=== PATIENT | female | born 1960 | race Caucasian/White ===

== ENCOUNTER → 2021-03-17 08:01 | Outpatient (BNVA) | payer OTHER, SELFPAY | DX: R82.71 Bacteriuria (principal); R31.29 Other microscopic hematuria | CPT/HCPCS: 99212 ==

== ENCOUNTER → 2022-03-23 09:15 | Outpatient (BNVA) | payer OTHER, SELFPAY | PROVIDERS: PCP Internal Medicine; Visit Provider Urology | DX: N36.2 Urethral caruncle (principal); R31.29 Other microscopic hematuria | CPT/HCPCS: 99212 ==

== ENCOUNTER 2023-03-23 09:11 | Outpatient (AMB) | payer MEDICARE, OTHER, SELFPAY ==
--- NOTE | 2023-03-23 09:19 | A.OFFVIS_ITS ---
Intake Intake Visit Reasons: Hematuria yearly follow up/UA Intake Note: Patient is present for Follow Up Urinalysis Urology Med: Estradiol Antibiotic Allergy: None Blood Thinner: None Pharmacy: [facility] Allergies No Known Allergies Allergy (Verified 03/23/23 09:20) HPI HPI Comments History of Present Illness Details Lisa is a very pleasant female. She is a patient of Dr Mayfield. She is seen for the following urologic conditions. 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 Full investigations 03/20 ? Prior Imaging normal ?Prior Cytology normal ?Cystoscopy prior with slight redness urethral caruncle ? Microscopic hematuria was diagnosed during?routine UA.? They are here for the?initial evaluation.? Since the last visit the patient has?has not noticed gross hematuria, continues to test postive for microscopic hematuria.? Relevant medical history for?no pertinent medical history ?- nonsmoker, no work place exposure.? Associated symptoms include? dysuria ?No ? frequency ?No ? urgency ?No ? decreased urinary stream ?No ? pain ?No ? nausea ?No ? weight loss ?No ? Radiographic imaging:?NAD.? Other investigations?03/20 , cytology, normal.? Cystoscopy findings?03/20 , normal.? Therapeutic plan continue yearly follow-up [facility] Medical History Microscopic hematuria Review of Systems Const Denies chills and Denies fever(s) Card Reports no additional complaints and Denies syncope Resp Denies cough GI Denies abdominal pain and Denies heartburn Reports as per HPI and Denies change in libido Neuro Denies syncope Psych Denies change in libido Endo Denies change in libido Physical Exam Const General: cooperative, healthy appearing, comfortable and no acute distress Orientation/consciousness: patient oriented x3 HEENT Face and sinus: Yes normal facial exam Mouth: moist mucous membranes Neck Neck: Yes normal visual inspection, Yes full ROM and Yes trachea midline Chest Chest palpation & inspection: normal inspection of the chest Resp Effort & Inspection: normal respiratory effort, able to speak in complete sentences and no respiratory distress GI Inspection: Yes normal to inspection Back/Spine/Pelvis Cervical Spine: normal cervical lordosis Thoracic/Lumbar Spine: thoracic and lumbar spine normal to inspection Skin General skin exam: no rashes or lesions noted Neuro General: patient oriented x3, gait normal, tone normal and moves all extremities Extrem General: Yes normal to inspection and Yes capillary refill normal Results AMB Urinalysis, Automated UA Leukoctes 0 Jessica/uL Last Edit by Amelia Braga [facility] on 03/23/23 09:29 UA Nitrite Negative Last Edit by Amelia Braga [facility] on 03/23/23 09:29 UA Urobilinogen 0.2 mg/dL Last Edit by Amelia Braga [facility] on 03/23/23 09:2 9 UA Protein 0 mg/dL Last Edit by Amelia Braga [place] on 03/23/23 09:29 UA pH 6.0 Last Edit by Amelia Braga A on 03/23/23 09:29 UA Blood 80 Cade/uL Last Edit by Amelia Braga [facility] on 03/23/23 09:29 UA Specific [place] 1.010 Last Edit by Amelia Braga [place] on 03/23/23 09: 29 UA Ketone Negative Last Edit by Amelia Braga [facility] on 03/23/23 09:29 UA Bilirubin 0 mg/dL Last Edit by Amelia Braga [place] on 03/23/23 09:29 UA Glucose 0 mg/dL Last Edit by Amelia Braga [facility] on 03/23/23 09:29 Results Reviewed Results Reviewed: Laboratory Last Values Urine pH (Auto) 6.0 03/23/23 09:20 Specific [place] (Auto) 1.010 03/23/23 09:20 Urine Protein (Auto) 0 mg/dL 03/23/23 09:20 Glucose (UA)(Auto) 0 mg/dL 03/23/23 09:20 Urine Ketones (Auto) Negative 03/23/23 09:20 Urine Blood (Auto) 80 Cade/uL 03/23/23 09:20 Urine Nitrite (Auto) Negative 03/23/23 09:20 Urine Bilirubin (Auto) 0 mg/dL 03/23/23 09:20 Urine Urobilinogen (Auto) 0.2 mg/dL 03/23/23 09:20 Leukocyte Esterase (Auto) 0 Jessica/uL 03/23/23 09:20 Assessment & Plan Assessment & Plan (1) Genitourinary syndrome of menopause: Code(s): N95.8 - Other specified menopausal and perimenopausal disorders (2) Urethral caruncle: Code(s): N36.2 - Urethral caruncle (3) Microscopic hematuria: Code(s): R31.29 - Other microscopic hematuria Plan 12 month follow-up Orders: Orders Urine Cytology Today R31.29 - Other microscopic hematuria AMB Urinalysis Automated Today Z13.9 - Encounter for screening, unspecified Patient Instructions: Imaging studies, laboratory and physical exam results were discussed and reviewed in detail. No major barriers to patient understanding were identified. An opportunity to ask questions regarding the treatment plan was provided. All questions were answered. The patient expressed understanding and agreement with the above treatment plan. The patient is aware they should contact our office by phone for worsening of their current condition or the appearance of new urologic symptoms. Compliance is encouraged with any medications and followup testing that is ordered. It is a privilege to participate in the urologic care of your patient. If you have any questions or concerns regarding treatment for the above conditions, or other urologic issues, please do not hesitate to contact me. The office telephone contact is [phone]. This note is constructed using voice recognition software. While every effort has been made to ensure accuracy veterinarian helper errors may have been included. Yours sincerely, Dr Oz Steven MD, [facility] - Urology Providers of Expert, Compassionate Care for the Genitourinary System Coding Level of Care Code Est Pt Level 4 (55807) Diagnoses Genitourinary syndrome of menopause N95.8 Urethral caruncle N36.2 Microscopic hematuria R31.29
== END 2023-03-23 09:49 | disposition home or self-care (01) ==
PROVIDERS: PCP Internal Medicine; Visit Provider Urology
DX: N95.8 Other specified menopausal and perimenopausal disorders (principal); N36.2 Urethral caruncle; R31.29 Other microscopic hematuria; Z13.9 Encounter for screening, unspecified
CPT/HCPCS: 99213

== ENCOUNTER 2023-03-23 09:11 | Outpatient (REF) | payer MEDICARE, OTHER, SELFPAY ==
[2023-03-23 17:13] LABS: Urine Cytology See Pathology rpt
== END 2023-03-23 09:12 | disposition home or self-care (01) ==
LOC: HO.LAB 09:11
PROVIDERS: PCP Internal Medicine; Visit Provider Urology
DX: R31.29 Other microscopic hematuria (principal); N95.8 Other specified menopausal and perimenopausal disorders; N36.2 Urethral caruncle
CPT/HCPCS: 81003; 88112; 99212

== ENCOUNTER 2024-03-20 10:31 | Outpatient (AMB) | payer MEDICARE, OTHER, SELFPAY ==
--- NOTE | 2024-03-20 11:12 | MHC.OFFVIS ---
Intake Visit Reasons: 1Y Follow Up-Urinalysis(Hematuria) Intake Note: Patient is Present for Follow Up Urinalysis Urology Medication:None Antibiotic Allergies: None Blood Thinners: None Medical Recruiter Required: No Accompanied by: self Allergies No Known Allergies Allergy (Verified 03/20/24 11:20) Medication List - Last Reconciled 03/20/24 by Oz Steven MD alendronate 70 mg PO QWEEK chlorhexidine gluconate 0.12% mL PO DIRECTED estradiol 0.01%(0.1mg/gram) (Estrace) 3 times a week; pea sized amount per urethra 3 times per week; 30 days fluoxetine 40 mg PO DAILY fluoxetine 60 mg PO DAILY fluticasone propionate 50 mcg/actuation sprays intranasal levothyroxine 88 mcg PO DAILY HPI Comments Details: Lisa is a very pleasant female. She is a patient of Dr Mayfield. She is seen for the following urologic conditions. 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 Full investigations 03/20 ? Prior Imaging normal ?Prior Cytology normal ?Cystoscopy prior with slight redness urethral caruncle ? Microscopic hematuria was diagnosed during?routine UA.? They are here for the?initial evaluation.? Since the last visit the patient has?has not noticed gross hematuria, continues to test postive for microscopic hematuria.? Relevant medical history for?no pertinent medical history ?- nonsmoker, no work place exposure.? Associated symptoms include? dysuria ?No ? frequency ?No ? urgency ?No ? decreased urinary stream ?No ? pain ?No ? nausea ?No ? weight loss ?No ? Radiographic imaging:?NAD.? Other investigations?03/20 , cytology, normal.? Cystoscopy findings?03/20 , normal.? Therapeutic plan continue yearly follow-up [facility] Medical History Microscopic hematuria Review of Systems Const Denies chills and Denies fever(s) Card Reports no additional complaints and Denies syncope Resp Denies cough GI Denies abdominal pain and Denies heartburn Reports as per HPI and Denies change in libido Neuro Denies syncope Psych Denies change in libido Endo Denies change in libido Physical Exam Const General: cooperative, healthy appearing, comfortable and no acute distress Orientation/consciousness: patient oriented x3 HEENT Face and sinus: Yes normal facial exam Mouth: moist mucous membranes Neck Neck: Yes normal visual inspection, Yes full ROM and Yes trachea midline Chest Chest palpation & inspection: normal inspection of the chest Resp Effort & Inspection: normal respiratory effort, able to speak in complete sentences and no respiratory distress GI Inspection: Yes normal to inspection Back/Spine/Pelvis Cervical Spine: normal cervical lordosis Thoracic/Lumbar Spine: thoracic and lumbar spine normal to inspection Skin General skin exam: no rashes or lesions noted Neuro General: patient oriented x3, gait normal, tone normal and moves all extremities Extrem General: Yes normal to inspection and Yes capillary refill normal Results AMB Urinalysis, Automated UA Leukoctes 0 Jessica/uL Last Edit by JOSE Tenorio on 03/20/24 11:32 UA Nitrite Negative Last Edit by JOSE Tenorio on 03/20/24 11:32 UA Urobilinogen 0.2 mg/dL Last Edit by JOSE Tenorio on 03/20/24 11:32 UA Protein 0 mg/dL Last Edit by JOSE Tenorio on 03/20/24 11:32 UA pH 7.0 Last Edit by JOSE Tenorio on 03/20/24 11:32 UA Blood 25 Cade/uL Last Edit by JOSE Tenorio on 03/20/24 11:32 UA Specific [place] 1.000 Last Edit by JOSE Tenorio on 03/20/24 11:32 UA Ketone Negative Last Edit by SUSAN TenorioA on 03/20/24 11:32 UA Bilirubin 0 mg/dL Last Edit by SUSAN TenorioA on 03/20/24 11:32 UA Glucose 0 mg/dL Last Edit by SUSAN TenorioA on 03/20/24 11:32 Results Reviewed Results Reviewed: Laboratory Last Values Urine pH (Auto) 7.0 03/20/24 11:31 Specific [place] (Auto) 1.000 03/20/24 11:31 Urine Protein (Auto) 0 mg/dL 03/20/24 11:31 Glucose (UA)(Auto) 0 mg/dL 03/20/24 11:31 Urine Ketones (Auto) Negative 03/20/24 11:31 Urine Blood (Auto) 25 Cade/uL 03/20/24 11:31 Urine Nitrite (Auto) Negative 03/20/24 11:31 Urine Bilirubin (Auto) 0 mg/dL 03/20/24 11:31 Urine Urobilinogen (Auto) 0.2 mg/dL 03/20/24 11:31 Leukocyte Esterase (Auto) 0 Jessica/uL 03/20/24 11:31 Assessment & Plan Assessment & Plan (1) Genitourinary syndrome of menopause: Code(s): N95.8 - Other specified menopausal and perimenopausal disorders Category: Medical (2) Urethral caruncle: Code(s): N36.2 - Urethral caruncle Category: Medical Plan Re prescription Estrace Twelve month follow-up Orders: Orders AMB Urinalysis Automated Today Z13.9 - Encounter for screening, unspecified Urine Cytology Today R31.29 - Other microscopic hematuria Patient Instructions: Imaging studies, laboratory and physical exam results were discussed and reviewed in detail. No major barriers to patient understanding were identified. An opportunity to ask questions regarding the treatment plan was provided. All questions were answered. The patient expressed understanding and agreement with the above treatment plan. The patient is aware they should contact our office by phone for worsening of their current condition or the appearance of new urologic symptoms. Compliance is encouraged with any medications and followup testing that is ordered. It is a privilege to participate in the urologic care of your patient. If you have any questions or concerns regarding treatment for the above conditions, or other urologic issues, please do not hesitate to contact me. The office telephone contact is [phone]. This note is constructed using voice recognition software. While every effort has been made to ensure accuracy polarity tester errors may have been included. Yours sincerely, Dr Oz Steven MD, [facility] - Urology Providers of Expert, Compassionate Care for the Genitourinary System Coding Level of Care Code Est Pt Level 4 (16573) Diagnoses Genitourinary syndrome of menopause N95.8 Urethral caruncle N36.2
== END 2024-03-20 11:53 | disposition home or self-care (01) ==
PROVIDERS: PCP Internal Medicine; Visit Provider Urology
DX: N95.8 Other specified menopausal and perimenopausal disorders (principal); N36.2 Urethral caruncle; Z13.9 Encounter for screening, unspecified
CPT/HCPCS: 99214

== ENCOUNTER 2024-03-20 10:31 | Outpatient (REF) | payer MEDICARE, OTHER, SELFPAY ==
[2024-03-20 16:42] LABS: Urine Cytology See Pathology rpt
== END 2024-03-20 10:32 | disposition home or self-care (01) ==
LOC: HO.LAB 10:31
PROVIDERS: PCP Internal Medicine; Visit Provider Urology
DX: R31.29 Other microscopic hematuria (principal); N95.8 Other specified menopausal and perimenopausal disorders; N36.2 Urethral caruncle
CPT/HCPCS: 81003; 88112; 99212

== ENCOUNTER 2025-03-20 08:24 | Outpatient (REF) | payer MEDICARE, OTHER, SELFPAY | END 2025-03-20 08:25 | disposition home or self-care (01) | LOC: HO.LAB 08:24 | PROVIDERS: PCP Internal Medicine; Visit Provider Nurse Practitioner Family | DX: N36.2 Urethral caruncle (principal); N95.8 Other specified menopausal and perimenopausal disorders | CPT/HCPCS: 81003; 88112; 99212 ==

== ENCOUNTER 2025-03-20 08:24 | Outpatient (AMB) | payer MEDICARE, OTHER, SELFPAY ==
--- NOTE | 2025-03-20 08:44 | A.OFFVIS_ITS ---
Intake Visit Reasons: 1y follow up Intake Note: Patient is present for 1Y F/U Urology Medication:ESTRADIOL Antibiotic Allergy:NONE Blood Thinner:NONE Deaf Interpreter Required: No Allergies No Known Allergies Allergy (Verified 03/20/25 12:47) Medication List - Last Reconciled 03/20/25 by TERI Hernandez-TORI estradiol 0.01%(0.1mg/gram) (Estrace) 3 times a week; pea sized amount per uret hra 3 times per week; 30 days fluoxetine 40 mg PO DAILY fluoxetine 60 mg PO DAILY fluticasone propionate 50 mcg/actuation sprays intranasal levothyroxine 88 mcg PO DAILY HPI Comments Details: Lisa is a very pleasant 65-year-old female patient of Dr Mayfield. She presents to the office today for follow-up of her microscopic hematuria, caruncle and genitourinary syndrome of menopause. In discussion with the patient today she reports to be doing and feeling well. She reports compliance with Estrace cream as prescribed. She denies having had any bothersome urinary issues or concerns since her last office visit here. In office urinalysis results reviewed with the patient today 3+ microscopic hematuria otherwise within normal limits. She discusses her previous history with in office cystoscopy with Dr. Steven and has since been utilizing Estrace cream as prescribed. She denies urinary urgency, urinary frequency, incontinence, nocturia, gross/visible hematuria, dysuria, foul smelling urine, changes to urinary stream, flank pain, fever, and or chills. She is happy with her current voiding parameters. Cystoscopy 03/2020 noted slight redness urethral caruncle. Previous urine cytology results 03/23 & 03/24 Negative for high-grade urothelial carcinoma. She denies any previous history of nicotine dependence and or workplace chemical exposure. We did discussed potential causes of microscopic hematuria. All questions were answered. She otherwise offers no other issues or concerns at this time. PREVIOUS OFFICE NOTE: Microscopic Hematuria:? Full investigations 03/20 ? Prior Imaging normal ?Prior Cytology normal ?Cystoscopy prior with slight redness urethral caruncle ? Microscopic hematuria was diagnosed during?routine UA.? They are here for the?initial evaluation.? Since the last visit the patient has?has not noticed gross hematuria, continues to test postive for microscopic hematuria.? Relevant medical history for?no pertinent medical history ?- nonsmoker, no work place exposure.? Associated symptoms include? dysuria ?No ? frequency ?No ? urgency ?No ? decreased urinary stream ?No ? pain ?No ? nausea ?No ? weight loss ?No ? Radiographic imaging:?NAD.? Other investigations?03/20 , cytology, normal.? Cystoscopy findings?03/20 , normal.? Therapeutic plan continue yearly follow-up [facility] Medical History (Reviewed 03/20/25 @ 12:52 by [facility] Microscopic hematuria Review of Systems Const All systems reviewed & are unremarkable except as noted in HPI and below Physical Exam Const General: cooperative, healthy appearing, comfortable, no acute distress, well developed, alert and awake Orientation/consciousness: patient oriented x3 Limitations: no limitations HEENT Head: Yes normal to inspection, Yes normocephalic and Yes atraumatic Ears: hearing grossly normal bilaterally Eyes General: appearance normal, both eyes and all related structures Neck Neck: Yes normal visual inspection and Yes trachea midline Chest Chest palpation & inspection: normal inspection of the chest Resp Effort & Inspection: normal respiratory effort and able to speak in complete sentences Cardio Rate: regular rate GI Inspection: Yes normal to inspection General: Yes no CVA tenderness Back/Spine/Pelvis Back: no CVA tenderness Skin General skin exam: no rashes or lesions noted Neuro General: patient oriented x3 Extrem General: Yes normal to inspection Psych Appearance: grossly normal and well kempt Mental Status: mental status grossly normal Speech and movement: Normal speech and movement present and Clear speech present Affect: normal affect Attitude: cooperative Thought process: Normal thought process present Thought content: Normal thought content present Insight: Fair insight present (Psych) Judgement: Fair judgement present (Psych) Results AMB Urinalysis, Automated UA Leukoctes 0 Jessica/uL Last Edit by MARY Mcdonald on 03/20/25 09:01 UA Nitrite Negative Last Edit [facility] on 03/20/25 09:01 UA Urobilinogen 0.2 mg/dL Last Edit by MARY Mcdonald on 03/20/25 09:0 1 UA Protein 0 mg/dL Last Edit by Sherita Escobar [facility] on 03/20/25 09:01 UA pH 6.0 Last Edit by Sherita Escobar [facility] on 03/20/25 09:01 UA Blood 200 Cade/uL Last Edit by Sherita Escobar [facility] on 03/20/25 09:01 UA Specific [place] 1.010 Last Edit by Sherita Escobar [facility] on 03/20/25 09: 01 UA Ketone Negative Last Edit by Sherita Escobar [facility] on 03/20/25 09:01 UA Bilirubin 0 mg/dL Last Edit by Sher[facility] Esc[facility] on 03/20/25 09:01 UA Glucose 0 mg/dL Last Edit by Sher[facility] on 03/20/25 09:01 Results Reviewed Results Reviewed: Laboratory Last Values Urine pH (Auto) 6.0 03/20/25 09:00 Specific [place] (Auto) 1.010 03/20/25 09:00 Urine Protein (Auto) 0 mg/dL 03/20/25 09:00 Glucose (UA)(Auto) 0 mg/dL 03/20/25 09:00 Urine Ketones (Auto) Negative 03/20/25 09:00 Urine Blood (Auto) 200 Cade/uL 03/20/25 09:00 Urine Nitrite (Auto) Negative 03/20/25 09:00 Urine Bilirubin (Auto) 0 mg/dL 03/20/25 09:00 Urine Urobilinogen (Auto) 0.2 mg/dL 03/20/25 09:00 Leukocyte Esterase (Auto) 0 Jessica/uL 03/20/25 09:00 Assessment & Plan Assessment & Plan (1) Microscopic hematuria: Code(s): R31.29 - Other microscopic hematuria Category: Medical (2) Urethral caruncle: Code(s): N36.2 - Urethral caruncle Category: Medical (3) Genitourinary syndrome of menopause: Code(s): N95.8 - Other specified menopausal and perimenopausal disorders Category: Medical Plan In office urinalysis results with the patient today; as noted above. Will send for urine cytology. She currently denies any bothersome urinary issues or concerns. She reports be happy with current voiding parameters. Will continue with surveillance monitoring. Continue Estrace cream as discussed and prescribed; refill provided. Discussed, educated, and stressed the importance of adequate hydration relation to overall health and well-being. Follow-up in 1 year; or sooner with any issues, concerns, and or questions. Orders: Orders Urine Cytology Today R31.29 - Other microscopic hematuria AMB Urinalysis Automated Today Z13.9 - Encounter for screening, unspecified Medications: Changed From estradiol 0.01%(0.1mg/gram) (Estrace) 3 times a week; pea sized amount per urethra 3 times per week; 30 days 42.5 grams 3RF complicated uti N39.0 - Urinary tract infection, site not specified To estradiol 0.01%(0.1mg/gram) (Estrace) 3 times a week; pea sized amount per urethra 3 times per week; 42.5 grams 4RF complicated uti 90 days N39.0 - Urinary tract infection, site not specified Patient Instructions: The patient had an opportunity to ask questions regarding the treatment plan. All questions were answered. Physical exam, labs, and imaging were discussed and reviewed in detail. As well as risks, benefits, and discussion of treatment choices. No major barriers to understanding were identified. The patient expressed understanding and agreement with the above treatment plan. The patient was made aware they should contact our office by phone for worsening of their current condition, the appearance of new symptoms, or with any questions or concerns. Compliance is encouraged with any medications and follow up testing that is ordered. It is a privilege to be allowed the opportunity to participate in? your urological care.? Again, if you have any questions or c oncerns If you have any questions or concerns please do not hesitate to contact me. The office is [phone]. This note is constructed using voice recognition software. While every effort has been made to ensure accuracy plater barrel errors may have been included. Yours sincerely, ЕКАТЕРИНА Hernandez Coding Level of Care Code Est Pt Level 3 (73591) Diagnoses Microscopic hematuria R31.29 Urethral caruncle N36.2 Genitourinary syndrome of menopause N95.8
== END 2025-03-20 09:15 | disposition home or self-care (01) ==
PROVIDERS: PCP Internal Medicine; Visit Provider Nurse Practitioner Family
DX: R31.29 Other microscopic hematuria (principal); N36.2 Urethral caruncle; N95.8 Other specified menopausal and perimenopausal disorders; Z13.9 Encounter for screening, unspecified
CPT/HCPCS: 99213